=== PATIENT | male | born 1935 | race Caucasian/White ===

== ENCOUNTER 2019-02-04 09:40 | Inpatient (IN) | payer MEDICARE, OTHER ==
[~2019-02-04] VITALS: Ht 170.2 cm; Wt 81.8 kg
[2019-02-04] MEDS ORDERED: ONDANSETRON 4 MG INJ IV STA (09:45)
[2019-02-04] MEDS ORDERED: SOD CHLORIDE 0.9% 1,000 ML IV STA (09:45)
[2019-02-04] MEDS ORDERED: SODIUM CHLORIDE 0.9% 1L BAG IV* STA (10:25)
--- NOTE | 2019-02-04 10:28 | ERD ---
ER Documentation Chief Complaint Chief Complaint dizziness prior to fall in kitchen with loc. no signs of trauma. A&OX3 HPI 83-year-old man brought in by EMS for syncopal episode. Patient states he had 2 syncopal episodes today once when coming from the bathroom and then another time when he went from a laying to standing position. He has a history of lymphoma and stopped using oral chemotherapy about 2 weeks ago because of its side effects. Patient describes dysuria today with burning sensation. Patient denies blood per rectum or melena, no fevers or chills, no chest pain or shortness of breath. Upon EMS arrival patient was hypotensive and tachycardic although vital signs improved in route. Patient denies slurred speech, no weakness in his hands or legs, no seizure activity, no loss of bowel or bladder control. ROS All systems reviewed and are negative except as per history of present illness. Medications Home Meds Reported Medications Omeprazole* (Omeprazole*) 40 Mg Capsule.dr, 40 MG PO DAILY, #30 CAP 02/04/19 Allergies Allergies: Coded Allergies: No Known Drug Allergies (Verified Allergy, Unknown, 02/04/19) PMhx/Soc Hx Miscellaneous Medical Probl: Yes (LYMPHOMA) Hx Alcohol Use: No Hx Substance Use: No Hx Tobacco Use: No Smoking Status: Former smoker FmHx Family History: No diabetes Physical Exam Vitals Vital Signs Date Temp Pulse Resp B/P (MAP) Pulse Ox O2 O2 Flow FiO2 Time Delivery Rate 02/04/19 Nasal 2 11:57 Cannula 02/04/19 101.0 10:57 02/04/19 101.0 96 15 120/63 99 Room Air 10:24 (82) 02/04/19 99.0 112 22 120/63 99 09:47 (82) Physical Exam GENERAL: Well-developed, well-nourished, appears dehydrated, febrile HEENT: Dry mucous membranes, pink conjunctiva, no cervical spine tenderness or step-off deformities, no goiter, no jaundice or icterus, extraocular movements intact without pain. No submandibular induration, and no pharyngeal erythema NEURO: Alert and oriented 3, cranial nerves II through XII intact bilaterally, pupils equal round reactive to light, no focal deficits or facial asymmetry, sensation intact distally Strength 5/5 in upper and lower extremities bilaterally CARDIAC: Tachycardic and regular no murmurs rubs or gallops LUNGS: Clear bilaterally no wheezing crackles or stridor ABDOMEN: Soft nontender, no guarding, no rigidity, no rebound, no psoas sign no obturator sign. SKIN: Warm and dry to touch, no abrasions, contusions, or hematomas, no lacerations, no ecchymosis, no target lesions, and without ulcers EXTREMITIES: No clubbing cyanosis or edema, calves are bilaterally symmetrical, no Homans sign, no popliteal cord sign. Distal pulses equal and bilateral PSYCH: Normal affect without agitation or irritability Result Diagram: 02/04/19 0954 02/04/19 0954 Results 24 hrs Laboratory Tests Test 02/04/19 09:54 02/04/19 10:31 White Blood Count 9.0 10^3/ul Red Blood Count 3.90 10^6/ul Hemoglobin 12.4 g/dl Hematocrit 36.8 % Mean Corpuscular Volume 94.4 fl Mean Corpuscular Hemoglobin 31.8 pg Mean Corpuscular Hemoglobin Concent 33.7 g/dl Red Cell Distribution Width 14.0 % Platelet Count 119 10^3/UL Mean Platelet Volume 8.8 fl Immature Granulocytes % 12.000 % Neutrophils % 62.1 % Segmented Neutrophils % (Manual) 56 % Band Neutrophils % (Manual) 14 % Lymphocytes % 11.6 % Lymphocytes % (Manual) 15 % Reactive Lymphocytes % (Manual) 2 % Monocytes % 8.5 % Monocytes % (Manual) 6 % Eosinophils % 5.0 % Eosinophils % (Manual) 5 % Basophils % 0.8 % Metamyelocytes % (manual) 2 % Nucleated Red Blood Cells % 0.0 /100WBC Immature Granulocytes # 1.070 10^3/ul Neutrophils # 5.6 10^3/ul Neutrophils # (Manual) 5.1 10^3/ul Band Neutrophils # 1.2 10^3/ul Lymphocytes (Manual) 1.3 10^3/ul Lymphocytes # 1.0 10^3/ul Reactive Lymphocytes # 0.1 10^3/ul Monocytes # 0.8 10^3/ul Monocytes # (Manual) 0.5 10^3/ul Eosinophils # 0.5 10^3/ul Basophils # 0.1 10^3/ul Metamyelocytes # 0.1 10^3/ul Nucleated Red Blood Cells # 0.0 10^3/ul Platelet Estimate NORMAL Platelet Morphology Comment @See below Poikilocytosis 1+ Anisocytosis 1+ Prothrombin Time 12.7 Sec Prothrombin Time Ratio 1.0 INR International Normalized Ratio 0.94 Activated Partial Thromboplast Time 28.5 Sec Sodium Level 139 mmol/L Potassium Level 4.1 mmol/L Chloride Level 96 mmol/L Carbon Dioxide Level 30 mmol/L Anion Gap 13 Blood Urea Nitrogen 20 mg/dl Creatinine 0.95 mg/dl Est Glomerular Filtrat Rate mL/min mL/min Glucose Level 218 mg/dl Calcium Level 9.5 mg/dl Total Bilirubin 0.6 mg/dl Direct Bilirubin 0.00 mg/dl Indirect Bilirubin 0.6 mg/dl Aspartate Amino Transf (AST/SGOT) 22 IU/L Alanine Aminotransferase (ALT/SGPT) 29 IU/L Alkaline Phosphatase 92 IU/L Troponin I < 0.012 ng/ml C-Reactive Protein 1.9 mg/dl Total Protein 6.6 g/dl Albumin 4.1 g/dl Globulin 2.50 g/dl Albumin/Globulin Ratio 1.64 Lipase 34 U/L POC Venous Lactate 2.3 mmol/L Current Medications Medications Dose Sig/Keri Start Time Status Last (Trade) Ordered Route PRN Stop Time Admin Dose Reason Admin Sodium 1,000 ml @ Q1H STAT 02/04/19 DC 02/04/19 Chloride 1,000 mls/hr IV 09:45 10:18 02/04/19 10:44 Ondansetron 4 mg ONCE STAT 02/04/19 DC 02/04/19 HCl (Zofran IV 09:45 10:17 Inj) 02/04/19 09:46 Sodium 1,000 ml @ Q1H ONCE 02/04/19 DC Chloride 1,000 mls/hr IV 10:30 02/04/19 11:29 Sodium 2,330 ml BOLUS OVER 2 02/04/19 DC 02/04/19 Chloride HOURS STAT 10:25 10:56 (NS) IV* 02/04/19 10:36 Ibuprofen 600 mg ONCE ONCE 02/04/19 DC 02/04/19 (Motrin) PO 10:30 10:57 02/04/19 10:36 Ceftriaxone 50 ml @ ONCE ONCE 02/04/19 DC 02/04/19 Sodium 100 mls/hr IVPB 10:30 10:54 02/04/19 10:59 Vancomycin 250 ml @ ONCE ONCE 02/04/19 02/04/19 HCl 125 mls/hr IVPB 10:30 11:59 02/04/19 12:29 Procedures/MDM IV line was established patient was placed on quality assurance monitor body rhythm strip revealed a sinus tachycardia at 100 bpm with upright P and T waves. Patient was febrile, blood and urine cultures have been ordered results are pending I will follow-up. I administered 3 L normal saline IV, ibuprofen 600 mg p.o. for fever, ceftriaxone 1 g IV and vancomycin [address] scan of the brain was performed that was negative for acute bleed mass or shift. One AP view of the chest performed, read by me reveals no acute infiltrates, normal mediastinum, sharp costophrenic and cardiac borders, no air under the diaphragm. Otherwise unremarkable chest x-ray. EKG performed, read by me: 95 bpm, normal sinus rhythm, normal axis, no acute ST segment changes, narrow QRS complex, with good R-wave progression in precordial leads. CBC was normal, electrolytes revealed dehydration with a BUN/creatinine of 20/1, liver function tests normal, troponin negative, lactic acid elevated at 2.3, C- reactive protein 1.9, UA is pending I will follow-up although I do suspect a urinary tract infection Patient's infectious symptoms have not stabilized and the patient is at risk of rapid decompensation. The patient will be admitted for careful hydration, antibiotic therapy, and infectious source control. SEVERE SEPSIS CRITERIA: Infectious source: Urinary tract End organ damage indicated by: [Lactate > 2.0 mmol/L Hypotension (SBP < 90 or >40 mmHG drop or MAP < 65) SEPSIS MANAGEMENT Time of recognition of sepsis: Upon arrival. Time of recognition of severe sepsis: No severe sepsis at this time. Time of recognition of septic shock: No septic shock at this time. 3 HOUR BUNDLE Blood cultures x 2 before broad-spectrum antibiotics: Yes 30 ml/kg NS bolus completed Initial lactate 2.3 Repeat lactate pending SEPTIC SHOCK ASSESSMENT: No lactic acid > 4.0 No persistent hypotension (SBP < 90 or 40 mmHg drop, MAP < 65) despite 30 mL/kg IV fluid bolus VOLUME REASSESSMENT FOR SEPTIC SHOCK: Reevaluation Time: 1200 Temp 99 F, 84 bpm, 102/60 mmHg respiratory rate 18 breaths/min, pulse oximeter 100% Heart regular rate & rhythm Lungs no crackles Skin warm & dry Cap Refill less than 2 seconds Peripheral pulses radially present PERSISTENT HYPOTENSION TREATMENT: Comfort care no Central line not Required Vasopressor started not required I considered further perfusion assessment with CVP measurement, SCVO2, bedside ultrasound volume assessment, passive leg raise, trial of further fluid bolus. And proceeded with 30 ml/kg fluid bolus of NSS, broad spectrum antibiotics, and admission. CRITICAL CARE: Critical care time 45 minutes, this was time separate from other billable procedures. Emergent fluid management while maintaining close respiratory support. Provision of immediate and broad-spectrum antibiotic therapy. Simultaneous assessment for possible sources in order to direct targeted therapy. Consideration for invasive and chemical support to prevent cardiopulmonary collapse. Critical care time is independent of procedures performed. Accepting Care Team: Current data and ongoing care discussed. Time: Time of admission Primary Provider: Hospitalist Consulting: Infectious disease Outstanding Data: none Departure Diagnosis: Primary Impression: Dizziness Additional Impressions: Sepsis Sepsis type: sepsis due to unspecified organism Qualified Codes: A41.9 - Sepsis, unspecified organism Dehydration UTI (urinary tract infection) Urinary tract infection type: acute cystitis Hematuria presence: without hematuria Qualified Codes: N30.00 - Acute cystitis without hematuria Condition: MIGUE Verdugo MD Feb 04, 2019 10:28
[2019-02-04] MEDS ORDERED: SOD CHLORIDE 0.9% 1,000 ML IV ONE (10:30)
[2019-02-04] MEDS ORDERED: CEFTRIAXONE 1 GM/50 ML (PMX) 50 ML IVPB ONE (10:30)
[2019-02-04] MEDS ORDERED: IBUPROFEN 600 MG TAB PO ONE (10:30)
[2019-02-04] MEDS ORDERED: VANCOMYCIN 1 GM (PMX) 250 ML IVPB ONE (10:30)
[2019-02-04] MEDS ORDERED: OMEP40CA6 PO ×2 (10:44→13:43)
[2019-02-04] MEDS ORDERED: LORA10TA3 PO (13:41)
[2019-02-04] MEDS ORDERED: [UNRECOGNIZED DRUG - CODE] PO (13:42)
[2019-02-04] MEDS ORDERED: LOSA1TAB25 PO (13:42)
[2019-02-04] MEDS ORDERED: ROSU10TA55 PO (13:43)
[2019-02-04] MEDS ORDERED: ASPI81TA52 PO (13:44)
[2019-02-04] MEDS ORDERED: GLYB2.5T2 PO (13:46)
[2019-02-04] MEDS ORDERED: METF500T24 PO (13:47)
[2019-02-04] MEDS ORDERED: NACL 0.9% 3 ML SYG IV SCH (15:30)
[2019-02-04] MEDS ORDERED: ONDANSETRON 4 MG INJ IV PRN (15:30)
[2019-02-04] MEDS ORDERED: ACETAMINOPHEN 325 MG TAB PO PRN (15:30)
--- NOTE | 2019-02-04 15:40 | HP ---
Date/Time of Note Date/Time of Note DATE: 02/04/19 TIME: 15:22 Assessment/Plan VTE Prophylaxis Pharmacological prophylaxis: NA/contraindicated Pharm contraindication: low risk/ambulating Lines/Catheters IV Catheter Type (from Nrsg): Saline Lock Assessment/Plan Assessment/Plan 83 yo man with lymphoma (CLL?), NIDDM, HTN, presents with syncope, fall, UTI. #Syncope #Fall - Likely due to sepsis from UTI - CT head negative. No injuries from fall. - Patient denies other cardiovascular or neurologic symptoms. - 24 hours in telemetry #UTI - Dysuria; UA with leuk esterase and nitrites - Empiric ceftriaxone - f/u urine culture #Lymphoma - No gross abnormalities on CBC or coags - Continue current meds as prescribed, patient to see Dr. Espinoza next week. #Diabetes - Hold home glyburide - Insulin sliding scale, carb controlled diet. #HTN - Continue home antihypertensives #Rash - To me it looks like contact dermatitis from some irritant. Patient denies using any perfumed soaps or detergents. - Would not expect fixed drug reaction to have lasted for 6 weeks. And it doesn't seem to be improving after stopping the idelalisib. - Not associated with eosinophilia - Outpatient followup. DVT: SCDs GI: Home PPI Result Diagram: 02/04/19 0954 02/04/19 0954 HPI/ROS Admit Date/Time Admit Date/Time 04 February 2019 Hx of Present Illness Mr. Laguna is an 83 yo man presenting to the emergency room after syncope and fall. He was in his usual state of health until this morning, when he noticed some burning at the tip of his penis with urination. Later in the morning he felt very dizzy when walking around his house and he fell. Lost consciousness but did not strike his head. When getting up from the floor he again felt very dizzy, lost his strength, and was unable to stand. His son found him sitting on the ground and took him to the emergency room. Of note, the patient follows Dr. Brandyn Espinoza (hematology, [facility]) for lymphoma. Most recently has been on Idelalisib. About 6 weeks ago he developed a maculopapular raised urticarial-appearing rash on the legs. Stopped his idelalisib, bactrim MWF, and omprazole 2 weeks ago for suspicion of possible drug rash. Also had port removed 1 week ago. Had an appointment with Dr. Espinoza today. In the ED the patient was febrile to 101.0, tachy to 112, BP 120/63. Lactate 2.3, repeat 1.8. trop negative. UA with nitrates and leuk esterase. ROS He denies feeling subjective fever, chills, weight loss, fatigue, headache, vision changes, dysphagia, nausea, vomiting, abdominal pain, cough, dyspnea, chest pain/pressure/palpitations, diarrhea. PMH/Family/Social Past Medical History NIDDM HTN Dyslipidemia lymphoma Medications Current Medications IV Flush (NS 3 ml) 3 ml PER PROTOCOL IV ; Start 02/04/19 at 15:30; Status UNV Ondansetron HCl (Zofran Inj) 4 mg Q6H PRN IV NAUSEA/VOMITING; Start 02/04/19 at 15:30; Status UNV Acetaminophen (Tylenol Tab) 650 mg Q6H PRN PO .PAIN 1-3 OR TEMP; Start 02/04/19 at 15:30; Status UNV Pantoprazole (Protonix Tab) 40 mg DAILY@06 PO ; Start 02/05/19 at 06:00; Status UNV Aspirin (Halfprin) 81 mg DAILY PO ; Start 02/05/19 at 09:00; Status UNV Miscellaneous Information 1 tab DAILY PO ; Start 02/05/19 at 09:00; Status UNV Miscellaneous Information 10 mg QHS PO ; Start 02/04/19 at 21:00; Status UNV Coded Allergies: No Known Drug Allergies (Verified Allergy, Unknown, 02/04/19) Past Surgical History Past Surgical Hx: no surgical history Social History Alcohol Use: none Smoking Status: Former smoker Drug Use: none Exam/Review of Systems Vital Signs Vitals Vital Signs Date Temp Pulse Resp B/P (MAP) Pulse Ox O2 O2 Flow FiO2 Time Delivery Rate 02/04/19 73 18 99/59 (72) 99 Room Air 15:12 02/04/19 98.8 13:47 02/04/19 2 11:57 Exam Exam Gen: Robust appearing elderly man lying in bed, awake and alert. Eyes: PERRL, no icterus HEENT: Moist mucous membranes, clear oropharynx Neck: No JVD; no lymphadenopathy, neck supple. Chest: R upper chest well-healed incision from portacath removal. Card: Regular rate and rhythm, no murmurs Pulm: Clear to auscultation bilaterally, no increased work of breathing. Abd: Soft, nontender, nondistended. Ext: Trace bilateral LE edema, no cyanosis Skin: urticarial-type raised maculopapular, erythematous rash across legs. CARLOS A MCCALL MD Feb 04, 2019 15:33
[2019-02-04 16:15] VITALS: PULSE 91
[2019-02-04 16:17] VITALS: BP 107/57; PULSE 90; RESP 20
[2019-02-04] MEDS ORDERED: GLUCOSE GEL 15 GRAM TUBE BUCCAL PRN (16:30)
[2019-02-04] MEDS ORDERED: GLUCOSE GEL 15 GRAM TUBE PO PRN ×2 (16:30)
[2019-02-04] MEDS ORDERED: DEXTROSE 50% 50 ML SYRINGE IV PRN ×2 (16:30)
[2019-02-04] MEDS ORDERED: GLUCAGON 1 MG INJ IM PRN (16:30)
[2019-02-04 17:05] VITALS: BP 107/57; PULSE 90; RESP 20; Ht 170.2 cm; Wt 81.8 kg
[2019-02-04] MEDS: INSULIN ASPART [NOVOLOG] 3 ML PEN SC SCH ×2 (18:00→21:25)
[2019-02-04 19:47] VITALS: BP 108/58; PULSE 85; RESP 20
[2019-02-04 20:05] VITALS: PULSE 83
[2019-02-04] MEDS ORDERED: ATORVASTATIN 40 MG TAB PO SCH (21:00)
[2019-02-04 23:20] VITALS: BP 97/53; PULSE 71; RESP 16
[2019-02-05] VITALS (9 sets, daily range): BP systolic 109–139; BP diastolic 55–77; PULSE 58–80; RESP 18–19
[2019-02-05] MEDS ORDERED: ACCU-CHEK XX SCH (02:00)
[2019-02-05] MEDS ORDERED: PANTOPRAZOLE (EC) 40 MG TAB PO SCH (06:00)
[2019-02-05] MEDS: INSULIN ASPART [NOVOLOG] 3 ML PEN SC SCH ×3 (08:05→17:30)
[2019-02-05] MEDS ORDERED: LOSARTAN 50 MG TAB PO SCH (09:00)
[2019-02-05] MEDS ORDERED: HYDROCHLOROTHIAZIDE 25 MG TAB PO SCH (09:00)
[2019-02-05] MEDS ORDERED: ASPIRIN (EC) 81 MG TAB PO SCH (09:00)
[2019-02-05] MEDS ORDERED: CEFTRIAXONE 1 GM/50 ML (PMX) 50 ML IVPB SCH (10:00)
[2019-02-05] MEDS ORDERED: MAGNESIUM SULFATE 2 GM/50 ML 50 ML IVPB ONE (12:30)
[2019-02-05] MEDS ORDERED: NITR100C7 PO (15:27)
--- NOTE | 2019-02-05 15:30 | PDOCDIS ---
Discharge Instructions DIAGNOSIS Discharge Diagnosis Syncope UTI CONDITION [id number] Patient Condition: Hcheg1g Good HOME CARE INSTRUCTIONS: Itanh8Ex Diet Instructions: Swarx2n Regular ACTIVITY: [id number] Activity Restrictions: Fiign0q No Restrictions FOLLOW UP/APPOINTMENTS Follow-up Plan 1. Take all medications as prescribed. 2. Take nitrofurantoin (macrobid) for 5 days for UTI. 3. For another fall with loss of consciousness, return to the emergency room. 4. Follow up with Dr. Espinoza as scheduled. 1. Colo todos los medicamentos segn lo prescrito. 2. Lizzette nitrofurantona (macrobida) kacey 5 murphy para la ITU. 3. Para otra cada con prdida de conciencia, vuelva a la abena de emergencias. 4. Mandeep un seguimiento con el Dr. Espinoza segn lo programado. CARLOS A MCCALL MD Feb 05, 2019 15:30
--- NOTE | 2019-02-05 16:51 | DS ---
Date/Time of Note Date/Time of Note DATE: 02/05/19 TIME: 16:50 Discharge Summary Admission/Discharge Info Admit Date/Time Feb 04, 2019 at 12:03 Discharge Date/Time Feb 05, 2019 Discharge Diagnosis Syncope UTI Patient Condition: Good Consults None Procedures None Hx of Present Illness Mr. Laguna is an 83 yo man presenting to the emergency room after syncope and fall. He was in his usual state of health until this morning, when he noticed some burning at the tip of his penis with urination. Later in the morning he felt very dizzy when walking around his house and he fell. Lost consciousness but did not strike his head. When getting up from the floor he again felt very dizzy, lost his strength, and was unable to stand. His son found him sitting on the ground and took him to the emergency room. Of note, the patient follows Dr. Brandyn Espinoza (hematology, [facility]) for lymphoma. Most recently has been on Idelalisib. About 6 weeks ago he developed a maculopapular raised urticarial-appearing rash on the legs. Stopped his idelalisib, bactrim MWF, and omprazole 2 weeks ago for suspicion of possible drug rash. Also had port removed 1 week ago. Had an appointment with Dr. Espinoza today. In the ED the patient was febrile to 101.0, tachy to 112, BP 120/63. Lactate 2.3, repeat 1.8. trop negative. UA with nitrates and leuk esterase. Hospital Course Monitored on telemetry for 24 hours with no events. During the hospital course he was up walking around with no problems. UA was positive for leuk esterase and nitrates but culture was negative. Got IV ceftriaxone for UTI and will be discharged on nitrofurantoin. Home Meds Active Scripts Nitrofurantoin Macrocrystal* (Nitrofurantoin Macrocrystal*) 100 Mg Capsule, 100 MG PO BID, #10 CAP Prov:CARLOS A MCCALL MD 02/05/19 Reported Medications Metformin Hcl* (Metformin Hcl*) 500 Mg Tablet, 500 MG PO WITH BREAKFAST DINNE, #60 TAB 02/04/19 Glyburide* (Glyburide*) 2.5 Mg Tablet, 2.5 MG PO BID, #60 TAB 02/04/19 Aspirin (Low Dose Aspirin) 81 Mg Tablet., 81 MG PO DAILY, #30 TAB 02/04/19 Omeprazole* (Omeprazole*) 40 Mg Capsule.dr, 40 MG PO DAILY, #30 CAP 02/04/19 Rosuvastatin Calcium* (Crestor*) 10 Mg Tablet, 10 MG PO QHS, #30 TAB 02/04/19 Losartan-Hydrochlorothiazide (Losartan-HCTZ) 100-25 Mg Tab, 1 TAB PO DAILY, TAB 02/04/19 Idelalisib (Zydelig) 150 Mg Tablet, 150 MG PO BID, TAB 02/04/19 Loratadine* (Loratadine*) 10 Mg Tablet, 10 MG PO DAILY, #30 TAB 02/04/19 Discontinued Reported Medications Omeprazole* (Omeprazole*) 40 Mg Capsule.dr, 40 MG PO DAILY, #30 CAP 02/04/19 Follow-up Plan 1. Take all medications as prescribed. 2. Take nitrofurantoin (macrobid) for 5 days for UTI. 3. For another fall with loss of consciousness, return to the emergency room. 4. Follow up with Dr. Espinoza as scheduled. 1. Canalou todos los medicamentos segn lo prescrito. 2. Lizzette nitrofurantona (macrobida) kacey 5 murphy para la ITU. 3. Para otra cada con prdida de conciencia, vuelva a la abena de emergencias. 4. Mandeep un seguimiento con el Dr. Espinoza segn lo programado. Primary Care Provider Care Physician No Primary Time spent on discharge: > 30 minutes Pending Labs Laboratory Tests Test 02/04/19 18:40 02/04/19 21:09 02/05/19 01:47 02/05/19 05:18 Bedside 210 188 136 Glucose mg/dL (70-220) mg/dL (70-220) mg/dL (70-220) White Blood 5.2 Count 10^3/ul (4.8-1 0.8) Red Blood 3.06 Count 10^6/ul (4.70- 6.10) Hemoglobin 9.7 g/dl (14.0-18. 0) Hematocrit 28.8 % (42.0-52.0) Mean 94.1 Corpuscular fl (82.0-101.0 Volume ) Mean 31.7 Corpuscular pg (29.0-33.0) Hemoglobin Mean 33.7 Corpuscular g/dl (32.0-37. Hemoglobin Conc 0) ent Red Cell 14.3 Distribution % (11.5-14.5) Width Platelet Count 85 10^3/UL (140-4 15) Mean Platelet 9.7 Volume fl (7.4-10.4) Immature 12.200 Granulocytes % % (0.001-0.429 ) Neutrophils % % (39.0-77.0) Segmented 55 % (39-77) Neutrophils % (Manual) Band 15 % (0-4) Neutrophils % (Manual) Lymphocytes % % (15.0-51.0) Lymphocytes % 15 % (15-51) (Manual) Reactive 1 % (0-0) Lymphocytes % (Manual) Monocytes % % (0.0-11.0) Monocytes % 5 % (0-11) (Manual) Eosinophils % % (0.0-7.0) Eosinophils % 5 % (0-7) (Manual) Basophils % % (0.0-2.0) Basophils % 4 % (0-2) (Manual) Nucleated Red 0.0 Blood Cells % /100WBC (0.0-0 .0) Immature 0.630 Granulocytes # 10^3/ul (0.0-0 .031) Neutrophils # 10^3/ul (1.6-7 .5) Neutrophils # 2.9 (Manual) 10^3/ul (1.6-7 .5) Band 0.7 Neutrophils # 10^3/ul (0.0-0 .6) Lymphocytes 0.7 (Manual) 10^3/ul (0.8-2 .9) Lymphocytes # 10^3/ul (0.8-2 .9) Reactive 0.0 Lymphocytes # 10^3/ul (0.0-0 .0) Monocytes # 10^3/ul (0.3-0 .9) Monocytes # 0.2 (Manual) 10^3/ul (0.3-0 .9) Eosinophils # 10^3/ul (0.0-0 .5) Basophils # 10^3/ul (0.0-0 .1) Basophils # 0.2 (Manual) 10^3/ul (0.0-0 .0) Nucleated Red 10^3/ul (0.0-0 Blood Cells # .0) Platelet DECREASED Estimate Polychromasia 3+ (0-0) Poikilocytosis 1+ (0-0) Anisocytosis 2+ (0-0) Microcytosis 1+ (0-0) Macrocytosis 1+ (0-0) Sodium Level 139 mmol/L (135-14 4) Potassium 3.9 Level mmol/L (3.5-5. 1) Chloride Level 103 mmol/L (97-110 ) Carbon Dioxide 29 Level mmol/L (21-31) Anion Gap 7 (5-13) Blood Urea 17 Nitrogen mg/dl (7-20) Creatinine 0.75 mg/dl (0.61-1. 24) Est Glomerular mL/min (>60) Filtrat Rate mL/min Glucose Level 146 mg/dl (70-220) Hemoglobin A1c 7.2 % (0-5.9) Calcium Level 8.7 mg/dl (8.4-10. 2) Phosphorus 2.9 Level mg/dl (2.5-4.9 ) Magnesium 1.6 Level mg/dl (1.7-2.5 ) Total 0.5 Bilirubin mg/dl (0.2-1.3 ) Direct 0.00 Bilirubin mg/dl (0.00-0. 20) Indirect 0.5 Bilirubin mg/dl (0-1.1) Aspartate Amino 21 Transf (AST/SGO IU/L (15-46) T) Alanine 23 Aminotransferas IU/L (13-69) e (ALT/SGPT) Alkaline 58 Phosphatase IU/L (42-121) Total Protein 5.0 g/dl (6.1-8.1) Albumin 2.9 g/dl (3.3-4.9) Globulin 2.10 g/dl (1.3-3.2) Albumin/Globuli 1.38 n Ratio Thyroid 1.210 Stimulating MIU/L (0.465-4 Hormone (TSH) .680) Test 02/05/19 07:52 02/05/19 11:35 Bedside 152 148 Glucose mg/dL (70-220) mg/dL (70-220) CARLOS A MCCALL MD Feb 05, 2019 16:51
== END 2019-02-05 18:03 | disposition home or self-care (01) | DRG 872 ==
LOC: E/R 09:40 → 6WM 12:03
PROVIDERS: ADMIT Internal Medicine; ATTEND Internal Medicine
DX: A41.9 Sepsis, unspecified organism (principal); N39.0 Urinary tract infection, site not specified; C85.90 Non-Hodgkin lymphoma, unspecified, unspecified site; R55 Syncope and collapse; E11.9 Type 2 diabetes mellitus without complications; I10 Essential (primary) hypertension; L25.9 Unspecified contact dermatitis, unspecified cause
CPT/HCPCS: 36415; 70450; 71045; 80053; 81001; 82962; 83036; 83605; 83690; 83735; 84100; 84443; 84484; 85025; 85610; 85730; 86140; 86850; 86900; 86901; 87040; 87086; 87400; 93005; 96374; 96375; J0696; J1815; J2405; J3370; J3475; J7030